=== PATIENT | male | born 1965 | race Caucasian/White ===

== ENCOUNTER 2018-06-07 09:59 | Inpatient (IN) | payer BC ==
[~2018-06-07] VITALS: Ht 180.3 cm; Wt 227.2 kg
[2018-06-07 10:56] LABS: BASOPHIL (%) 0.2 % (0-1); EOSINOPHIL (%) 0.3 % (0-5); HEMATOCRIT 34.8 % (38.0-50.0); HEMOGLOBIN 11.6 G/DL (12.5-16.6); IMMATURE GRANULOCYTE (%) 0.6 % (0.0-0.7); LYMPHOCYTE COUNT 0.6 K/uL (1.0-2.8); MCH 28.1 PG (29.0-34.0); MCHC 33.3 G/DL (30.0-36.0); MCV 84.3 FL (86-99); MONOCYTE (%) 11.9 % (3-12); MONOCYTE COUNT 1.5 K/uL (0-0.8); NEUTROPHIL COUNT 10.1 K/uL (1.8-6.4); PLATELET COUNT 252 K/uL (156-360); RBC DIS.WIDTH-CV 14.7 % (11.8-14.6); RBC DIS.WIDTH-SD 45.1 % (39-53); RED BLOOD COUNT 4.13 M/uL (4.00-5.50); WHITE BLOOD COUNT 12.3 K/uL (4.1-10.2)
[2018-06-07 11:07] LABS: CHLORIDE 97 mEq/L (99-109); POTASSIUM 3.4 mEq/L (3.7-5.4); SODIUM 136 mEq/L (136-147)
[2018-06-07 11:09] LABS: GLUCOSE 139 mg/dL (70-99)
[2018-06-07 11:13] LABS: CREATININE 1.9 mg/dL (0.6-1.3); GFR ESTIMATE (CALCULATED) 40 mL/min/ (58.99-99999); UREA NITROGEN (BUN) 22 mg/dL (9-23)
[2018-06-07] MEDS ORDERED: TRAMADOL HCL50 MG PO (12:16)
[2018-06-07] MEDS ORDERED: POTASSIUM CHLO20 ME1 PO (12:20)
[2018-06-07] MEDS ORDERED: LOSARTAN POTAS100 MG PO (12:22)
[2018-06-07] MEDS ORDERED: CENTRUM MEN'S1 EACH PO (12:31)
[2018-06-07] MEDS ORDERED: ADVIL200 MG PO (12:33)
[2018-06-07 15:40] VITALS: BP 174/81
[2018-06-07 19:46] VITALS: BP 166/77
[2018-06-07 23:29] VITALS: BP 143/72
[2018-06-08 05:57] LABS: HEMATOCRIT 32.6 % (38.0-50.0); HEMOGLOBIN 10.8 G/DL (12.5-16.6); MCH 28.2 PG (29.0-34.0); MCHC 33.1 G/DL (30.0-36.0); MCV 85.1 FL (86-99); PLATELET COUNT 250 K/uL (156-360); RBC DIS.WIDTH-CV 14.8 % (11.8-14.6); RBC DIS.WIDTH-SD 46.2 % (39-53); RED BLOOD COUNT 3.83 M/uL (4.00-5.50); WHITE BLOOD COUNT 8.9 K/uL (4.1-10.2)
[2018-06-08 06:15] LABS: CHLORIDE 98 MEQ/L (99-109); CREATININE 1.6 MG/DL (0.6-1.3); GFR ESTIMATE (CALCULATED) 49 mL/min/ (58.99-99999); GLUCOSE 124 mg/dL (70-99); POTASSIUM 3.6 MEQ/L (3.7-5.4); SODIUM 138 MEQ/L (136-147); UREA NITROGEN (BUN) 18 mg/dL (9-23)
[2018-06-08 08:05] VITALS: BP 140/74
[2018-06-08 17:00] VITALS: BP 168/72
[2018-06-08 19:07] VITALS: BP 147/73
[2018-06-08 23:29] VITALS: BP 132/61
[2018-06-09 07:30] VITALS: BP 164/77
[2018-06-09 09:19] LABS: CHLORIDE 96 MEQ/L (99-109); SODIUM 136 MEQ/L (136-147)
[2018-06-09 09:25] LABS: CREATININE 1.4 MG/DL (0.6-1.3); GFR ESTIMATE (CALCULATED) 57 mL/min/ (58.99-99999); GLUCOSE 168 mg/dL (70-99); UREA NITROGEN (BUN) 18 mg/dL (9-23)
[2018-06-09 16:59] VITALS: BP 163/75
[2018-06-09 23:32] VITALS: BP 147/73
[2018-06-10 06:32] LABS: ALBUMIN 2.5 G/DL (3.2-4.8); CHLORIDE 96 MEQ/L (99-109); CREATININE 1.4 MG/DL (0.6-1.3); GFR ESTIMATE (CALCULATED) 57 mL/min/ (58.99-99999); GLUCOSE 137 mg/dL (70-99); POTASSIUM 4.2 MEQ/L (3.7-5.4); SODIUM 135 MEQ/L (136-147); UREA NITROGEN (BUN) 18 mg/dL (9-23)
[2018-06-10 07:30] VITALS: BP 141/84
[2018-06-10 14:42] LABS: HEMOGLOBIN A1c (GLYCOHEMOGLOB) 6.5 % (Below 5.7)
[2018-06-10 15:00] VITALS: BP 171/93
[2018-06-11 07:40] VITALS: BP 139/90
[2018-06-11 09:02] LABS: CHLORIDE 95 MEQ/L (99-109); CREATININE 1.2 MG/DL (0.6-1.3); GFR ESTIMATE (CALCULATED) > 59 mL/min/ (58.99-99999); GLUCOSE 141 mg/dL (70-99); POTASSIUM 4.6 MEQ/L (3.7-5.4); SODIUM 135 MEQ/L (136-147); UREA NITROGEN (BUN) 19 mg/dL (9-23)
[2018-06-11 14:44] LABS: BASOPHIL (%) 0.2 % (0-1); EOSINOPHIL (%) 0.7 % (0-5); EOSINOPHIL COUNT 0.1 K/uL (0-0.3); HEMATOCRIT 36.3 % (38.0-50.0); HEMOGLOBIN 11.4 G/DL (12.5-16.6); IMMATURE GRANULOCYTE (%) 1.2 % (0.0-0.7); LYMPHOCYTE (%) 6.9 % (15-42); LYMPHOCYTE COUNT 0.6 K/uL (1.0-2.8); MCH 27.5 PG (29.0-34.0); MCHC 31.4 G/DL (30.0-36.0); MCV 87.5 FL (86-99); MONOCYTE (%) 10.4 % (3-12); MONOCYTE COUNT 0.9 K/uL (0-0.8); NEUTROPHIL (%) 80.6 % (45-76); NEUTROPHIL COUNT 7.1 K/uL (1.8-6.4); RBC DIS.WIDTH-CV 14.9 % (11.8-14.6); RED BLOOD COUNT 4.15 M/uL (4.00-5.50); WHITE BLOOD COUNT 8.8 K/uL (4.1-10.2)
[2018-06-11 14:48] LABS: PLATELET COUNT 356 K/uL (156-360)
[2018-06-11 15:00] VITALS: BP 143/88
[2018-06-11 23:50] VITALS: BP 124/71
[2018-06-12 06:29] LABS: CHLORIDE 95 MEQ/L (99-109); CREATININE 1.2 MG/DL (0.6-1.3); GFR ESTIMATE (CALCULATED) > 59 mL/min/ (58.99-99999); GLUCOSE 128 mg/dL (70-99); POTASSIUM 4.7 MEQ/L (3.7-5.4); SODIUM 137 MEQ/L (136-147); UREA NITROGEN (BUN) 21 mg/dL (9-23)
[2018-06-12 08:23] VITALS: BP 174/81
[2018-06-13 00:51] VITALS: BP 139/74
[2018-06-13 07:52] VITALS: BP 134/75
[2018-06-13 15:20] VITALS: BP 144/63
[2018-06-13 23:32] VITALS: BP 131/76
[2018-06-14 07:10] VITALS: BP 144/74
[2018-06-14] MEDS ORDERED: KEFLEX125 MG/5 M PO (09:54)
[2018-06-14 15:34] VITALS: BP 143/71
[2018-06-15 07:22] VITALS: BP 144/65
[2018-06-15 15:50] VITALS: BP 142/62
[2018-06-16 00:29] VITALS: BP 122/61
[2018-06-16 06:53] LABS: BASOPHIL (%) 0.4 % (0-1); EOSINOPHIL (%) 2.1 % (0-5); EOSINOPHIL COUNT 0.2 K/uL (0-0.3); HEMATOCRIT 37.5 % (38.0-50.0); HEMOGLOBIN 11.6 G/DL (12.5-16.6); IMMATURE GRANULOCYTE (%) 1.6 % (0.0-0.7); LYMPHOCYTE (%) 8.3 % (15-42); LYMPHOCYTE COUNT 0.7 K/uL (1.0-2.8); MCH 27.4 PG (29.0-34.0); MCHC 30.9 G/DL (30.0-36.0); MCV 88.4 FL (86-99); MONOCYTE (%) 10.7 % (3-12); MONOCYTE COUNT 0.9 K/uL (0-0.8); NEUTROPHIL (%) 76.9 % (45-76); NEUTROPHIL COUNT 6.1 K/uL (1.8-6.4); PLATELET COUNT 450 K/uL (156-360); RBC DIS.WIDTH-CV 14.7 % (11.8-14.6); RBC DIS.WIDTH-SD 47.2 % (39-53); RED BLOOD COUNT 4.24 M/uL (4.00-5.50); WHITE BLOOD COUNT 7.9 K/uL (4.1-10.2)
[2018-06-16 07:25] VITALS: BP 142/65
[2018-06-16 07:50] LABS: CHLORIDE 97 MEQ/L (99-109); CREATININE 1.1 MG/DL (0.6-1.3); GFR ESTIMATE (CALCULATED) > 59 mL/min/ (58.99-99999); GLUCOSE 110 mg/dL (70-99); POTASSIUM 5.3 MEQ/L (3.7-5.4); SODIUM 137 MEQ/L (136-147); UREA NITROGEN (BUN) 25 mg/dL (9-23)
[2018-06-16] MEDS ORDERED: KEFLEX500 MG PO (12:19)
[2018-06-16] MEDS ORDERED: SORE THROAT LO1 EAC3 MM (12:21)
[2018-06-16] MEDS ORDERED: AMLODIPINE BESY10 MG PO (12:22)
[2018-06-16] MEDS ORDERED: ALBUTEROL2.5 MG/0.5 AEROSOL (12:23)
[2018-06-16] MEDS ORDERED: TRAMADOL HCL50 MG PO (12:26)
== END 2018-06-16 13:20 | DRG 603 ==
LOC: EME 09:59 → 5EAST 12:30 → EDOF 12:30 → ENRESERV 12:32 → 5EAST 14:06
PROVIDERS: Emergency Medicine; Hospitalist; Internal Medicine; Physician Assistant
PROC: 5A09357 Assistance with Respiratory Ventilation, Less than 24 Consecutive Hours, Continuous Positive Airway Pressure (ICD-10-PCS; principal; 2018-06-07)
DX: L03.116 Cellulitis of left lower limb (principal); L03.311 Cellulitis of abdominal wall; E65 Localized adiposity; I97.89 Other postprocedural complications and disorders of the circulatory system, not elsewhere classified; Y83.8 Other surgical procedures as the cause of abnormal reaction of the patient, or of later complication, without mention of misadventure at the time of the procedure; I89.0 Lymphedema, not elsewhere classified; E66.01 Morbid (severe) obesity due to excess calories; S71.102A Unspecified open wound, left thigh, initial encounter; S71.101A Unspecified open wound, right thigh, initial encounter; X58.XXXA Exposure to other specified factors, initial encounter; R53.1 Weakness; M79.89 Other specified soft tissue disorders; G47.33 Obstructive sleep apnea (adult) (pediatric); J44.9 Chronic obstructive pulmonary disease, unspecified; I12.9 Hypertensive chronic kidney disease with stage 1 through stage 4 chronic kidney disease, or unspecified chronic kidney disease; N18.3 Chronic kidney disease, stage 3 (moderate); F32.9 Major depressive disorder, single episode, unspecified; G89.29 Other chronic pain; Z87.891 Personal history of nicotine dependence; Z68.44 Body mass index [BMI] 60.0-69.9, adult
CPT/HCPCS: 73140; 76882; 80048; 82040; 82948; 83036; 83605; 84132 91; 85025; 85027; 87040; 93971; 94640; 94799; 99281; 99285; A6214; J0690; J0696; J1650; J1815; J2270; J2543; J7050

== ENCOUNTER 2018-06-24 14:05 | Emergency (ER) | payer BC ==
[~2018-06-24] VITALS: Ht 177.8 cm; Wt 227.0 kg
[~2018-06-24 14:05] MED LIST: ADVIL200 MG PO; ALBUTEROL2.5 MG/0.5 AEROSOL; AMLODIPINE BESY10 MG PO; CENTRUM MEN'S1 EACH PO; KEFLEX125 MG/5 M PO; KEFLEX500 MG PO; LOSARTAN POTAS100 MG PO; POTASSIUM CHLO20 ME1 PO; SORE THROAT LO1 EAC3 MM; TRAMADOL HCL50 MG PO
[2018-06-24 14:37] LABS: BASOPHIL (%) 0.5 % (0-1); EOSINOPHIL (%) 3.5 % (0-5); EOSINOPHIL COUNT 0.3 K/uL (0-0.3); HEMATOCRIT 34.8 % (38.0-50.0); HEMOGLOBIN 10.9 G/DL (12.5-16.6); IMMATURE GRANULOCYTE (%) 0.6 % (0.0-0.7); LYMPHOCYTE COUNT 0.6 K/uL (1.0-2.8); MCH 27.5 PG (29.0-34.0); MCHC 31.3 G/DL (30.0-36.0); MCV 87.7 FL (86-99); MONOCYTE (%) 7.4 % (3-12); MONOCYTE COUNT 0.6 K/uL (0-0.8); NEUTROPHIL COUNT 6.2 K/uL (1.8-6.4); PLATELET COUNT 391 K/uL (156-360); RBC DIS.WIDTH-CV 14.6 % (11.8-14.6); RED BLOOD COUNT 3.97 M/uL (4.00-5.50); WHITE BLOOD COUNT 7.8 K/uL (4.1-10.2)
[2018-06-24 14:45] LABS: ALBUMIN 2.8 g/dL (3.2-4.8); CHLORIDE 99 mEq/L (99-109); POTASSIUM 4.4 mEq/L (3.7-5.4); SODIUM 138 mEq/L (136-147)
[2018-06-24 14:47] LABS: GLUCOSE 138 mg/dL (70-99); TOTAL PROTEIN 6.8 g/dL (6.4-8.3)
[2018-06-24 14:49] LABS: TOTAL BILIRUBIN 0.4 mg/dL (0.0-1.0)
[2018-06-24 14:51] LABS: ALKALINE PHOSPHATASE 177 IU/L (3-129); CREATININE 1.1 mg/dL (0.6-1.3); GFR ESTIMATE (CALCULATED) > 59 mL/min/ (58.99-99999)
[2018-06-24 14:52] LABS: UREA NITROGEN (BUN) 29 mg/dL (9-23)
[2018-06-24 14:53] LABS: AST (GOT) 76 IU/L (2-34)
[2018-06-24 14:54] LABS: ALT (GPT) 202 IU/L (3-49); LIPASE 15 U/L (1.0-51.0)
[2018-06-24 16:44] LABS: APPEARANCE SL.HAZY ((CLEAR)); BILIRUBIN NEGATIVE; BLOOD LARGE; COLOR YELLOW ((YELLOW)); GLUCOSE (STRIP) NEGATIVE; KETONES NEGATIVE; LEUKOCYTES TRACE; NITRITE NEGATIVE; PROTEIN (STRIP) NEGATIVE; SPECIFIC GRAVITY 1.013 (1.000-1.030); UROBILINOGEN 0.2 MG/DL (0.2-1.0)
[2018-06-24 16:50] LABS: BACTERIA NONE SEEN /HPF; CALCIUM OXALATE CRYSTALS 2+ /HPF; EPITHELIAL CELLS NONE SEEN /HPF; MUCUS TRACE /LPF; RED BLOOD CELLS TNTC /HPF (0-5); UCUL ADDED? YES
[2018-06-24 23:57] VITALS: BP 154/81
== END 2018-06-24 23:58 ==
LOC: EME 14:05
PROVIDERS: Emergency Medicine
DX: R74.0 Nonspecific elevation of levels of transaminase and lactic acid dehydrogenase [LDH] (principal); R31.9 Hematuria, unspecified; M25.562 Pain in left knee; R93.9 Diagnostic imaging inconclusive due to excess body fat of patient; E66.01 Morbid (severe) obesity due to excess calories; Z68.44 Body mass index [BMI] 60.0-69.9, adult; I10 Essential (primary) hypertension; J44.9 Chronic obstructive pulmonary disease, unspecified
CPT/HCPCS: 73560; 73564; 80053; 81003; 83690; 85025; 86850; 86900; 86901; 87086; 99281; 99285